=== PATIENT | female | born 1985 | race Caucasian/White ===

== ENCOUNTER 2018-02-17 10:27 | Day surgery (SDC) | payer BC ==
[2018-02-13 14:59] VITALS: BMI 44.1
--- NOTE | 2018-02-17 02:32 | HP ---
DATE OF PLANNED PROCEDURE: 02/17/2018 PROCEDURE TO BE PERFORMED: IUD removal with laparoscopy. HISTORY OF PRESENT ILLNESS: Ms. Monalisa Gomez is a 32-year-old G3, P3 who presented to our office requesting IUD removal, as her had a vasectomy planned. The patient met with the nurse practitioner in the office and reported a very difficult IUD placement and the history of a difficult IUD removal. Prior to removing the IUD, the IUD strings were confirmed and noted to be protruding from the cervix in the normal fashion. Nurse practitioner ordered an ultrasound, had an ultrasound in the office with concern for placement of the IUD within the previous section, hysterotomy scar. There is also a concern of fluid collection or vascularity near the implanted IUD site and therefore discussion with the patient about removal in the operating room. PAST MEDICAL HISTORY: Obesity. MEDICATIONS: 1. Pantoprazole 40mg 2. Proventil HFA as needed 3. Benzonatate 100mg 4. Fioricet as needed 5. Phentermine 37.5mg PAST SURGICAL HISTORY: Two sections. SOCIAL HISTORY: , nonsmoker, no alcohol, drug use. FAMILY HISTORY: Significant for diabetes and breast cancer in her mother. OBSTETRICAL HISTORY: Significant for two previous sections and one vaginal delivery. GYNECOLOGIC HISTORY: LMP 12/15/2017, most recent Pap smear 04/2017. REVIEW OF SYSTEMS: Negative except per HPI PHYSICAL EXAMINATION: VITAL SIGNS: Weight 257 pounds, BMI 44, blood pressure 120/90, pulse 80, respirations 18. GENERAL: No acute distress. Alert and oriented. HEENT: Grossly normal. LUNGS: Nonlabored breathing. ABDOMEN: Obese, nontender. No palpable masses. GENITOURINARY: Normal external female genitalia. Normal vaginal mucosa. IUD strings noted to be long and within the vagina coming from the cervix in the usual fashion. No vaginal discharge or cervical discharge. No vaginal or cervical lesions. SKIN: No rashes. MUSCULOSKELETAL: Grossly normal. PSYCHIATRIC: Appropriate affect and mood. ASSESSMENT AND PLAN: Ms. Monalisa Gomez is a 32-year-old requesting removal of IUD with atypical history of drainage cycles and bedside ultrasound with an IUD that appears to be within the myometrium and concern for placement within the hysterotomy scar. Patient has been counseled on the risk and benefits of removal in the office versus removal in the operating room under laparoscopic visualization. We discussed that in the event that bleeding from the uterus occurs on the uterine myometrium or uterine serosa after removal. We will attempt care at that time. We also discussed the possibility of removing the IUD vaginally with strings versus laparoscopically if the IUD also noted to be outside the myometrial wall. The patient's questions have been answered. She understands the risks are to include, but not limited to bleeding, infection, damage to intraabdominal pelvic organs, inability to fully diagnosed, and treat all conditions at the time of surgery and possible need for future medical and/ or surgical management. DOUG
[2018-02-17] MEDS ORDERED: Gabapentin 300 MG CAP ONE (10:35)
[2018-02-17] MEDS ORDERED: CeleCOXIB 100 MG CAP ONE (10:35)
[2018-02-17] MEDS ORDERED: CEFAZOLIN 2 GM/50 ML BAG ONE (10:35)
[2018-02-17] MEDS ORDERED: Famotidine/PF 20 mg/2ml Vial ONE (10:35)
[2018-02-17] MEDS ORDERED: Bupivacaine HCl 0.5%/Epinephrine 1:200,000/PF 30 ml Vial ONE (10:41)
[2018-02-17] MEDS ORDERED: Fentanyl 100 MCG/2 ML VIAL ONE ×2 (11:04→12:27)
[2018-02-17] MEDS ORDERED: Midazolam HCl 2 mg/2 ml Vial ONE (11:04)
--- NOTE | 2018-02-17 12:30 | OP ---
DATE OF PROCEDURE: 02/17/2018 PREOPERATIVE DIAGNOSIS: Concern for IUD in hysterotomy scar. POSTOPERATIVE DIAGNOSIS: Concern for IUD in hysterotomy scar. PROCEDURES PERFORMED: Diagnostic laparoscopy with IUD removal (vaginal removal). SURGEON: Pardeep Sifuentes D.O. DIRECTOR [employer]TER[employer] SALES: Maribel Muller M.D. and Miladis Bain, MS-III. ANESTHESIA: GETA. COMPLICATIONS: None. URINE OUTPUT: 100 mL ESTIMATED BLOOD LOSS: Less than 5 mL FINDINGS: 1. Obesity. 2. Abdominal adhesions of the omentum to the anterior abdominal wall and dense adhesions of the blad petr to the cervix and lower aspect of the uterus. 3. No bleeding noted from the uterus or vagina with IUD removal. 4. IUD strings noted in the vaginal canal. INDICATIONS FOR SURGERY: Ms. Monalisa Negrete had presented to our office for removal of IUD after th e decision was made for partner vasectomy. She gave an atypical history of Mirena placement and heav y periods since placement and had an ultrasound evaluation prior to planned removal, which described the Mirena being within the myometrium and concern for placement within the hysterotomy scar. The benji case was counseled for office removal versus removal in the OR with laparoscopy versus hysteroscopy if indicated. PROCEDURE DETAILS: The patient was taken back to the OR with IV fluids running. She was placed in d orsal supine position and general anesthesia was obtained. Once the patient was asleep, she was plac ed in low dorsal lithotomy position and the abdomen and vagina were prepped and draped in normal [facility] ion for gynecologic laparoscopy. Fernandes catheter was placed in the bladder to drain the bladder. An operative speculum was placed into the vagina with the IUD strings noted along with the vaginal canal . The operative speculum was then removed and a sponge stick was placed in the vagina for manipulati on during laparoscopy if needed. The surgeon's gloves were changed and attention was turned to lapar oscopic portion of the case. Beginning at the infraumbilical fold, lidocaine was injected in the ski n and subcutaneous tissue. A 5 mm skin incision was made with the scalpel. A Veress needle was plac ed through the skin incision and the abdomen was insufflated without difficulty. A 5 mm optic trocar was placed through this incision under direct visualization. The obturator of the trocar was remove d and laparoscope was replaced through the trocar, immediately noting dense intraabdominal adhesions of the omentum to the anterior abdominal wall. Despite Trendelenburg position, the bowel and abdomin al fat was obstructing the view of the uterus. For this reason, a left lower quadrant 8 mm trocar wa s placed under direct visualization and in similar fashion. After the 8 mm trocar was placed, a blun t grasper was placed through this trocar site. The bowel was then elevated off the uterus and the ut erus was closely inspected with the laparoscope. Dense adhesions of the bladder were noted to the in ferior aspect of the uterus. There was no evidence of the IUD perforating through the myometrium int o the serosa. Next, while observing carefully with the laparoscope over this area of the uterus, the IUD strings were grasped with a ring forceps and the IUD easily removed from the uterine cavity. Wi th a period of observation, no bleeding or hematoma formation was noted laparoscopically at the level of the uterus. In addition, no bleeding was noted from the cervix. All instruments were then remov ed from the abdomen and vagina. The port sites were closed after gas was released from the abdomen. Both port sites were closed with 4-0 Monocryl and dressed with Dermabond dressing. The patient was cleaned, dried and taken out of lithotomy position, extubated and transferred to the recovery room in good condition.
[2018-02-17] MEDS ORDERED: HYDROcodone/Acetaminophen 5/325 mg Tablet ONE (14:14)
[2018-02-17] MEDS ORDERED: Lidocaine 1% PF 5 ML VIAL ONE (15:44)
[2018-02-17] MEDS ORDERED: PROPOFOL 200 MG/20 ML VIAL ONE (15:44)
[2018-02-17] MEDS ORDERED: Ketorolac Tromethamine 30 MG/ML VIAL ONE (15:44)
[2018-02-17] MEDS ORDERED: Ondansetron PF 4 MG/2 ML Vial ONE (15:44)
[2018-02-17] MEDS ORDERED: Glycopyrrolate 0.2 MG/ML 5 ML SYRINGE ONE (15:44)
[2018-02-17] MEDS ORDERED: Dexamethasone 20 MG/5 ML VIAL ONE (15:44)
== END 2018-02-17 14:50 | disposition home or self-care (01) ==
LOC: SDC 10:27
PROVIDERS: ATTEND Obstetrics & Gynecology
PROC: 0UPD4HZ Removal of Contraceptive Device from Uterus and Cervix, Percutaneous Endoscopic Approach (ICD-10-PCS; principal; 2018-02-17)
DX: Z30.432 Encounter for removal of intrauterine contraceptive device (principal); E66.9 Obesity, unspecified; Z88.8 Allergy status to other drugs, medicaments and biological substances; Z79.899 Other long term (current) drug therapy
CPT/HCPCS: 96374; J0670; J1100; J1885; J2001; J2250; J2405; J2704; J3010; S0028